=== PATIENT | female | born 1950 | race Caucasian/White ===

== ENCOUNTER 2018-02-15 20:23 | Inpatient (IN) | payer MEDICARE ==
[2018-02-15] MEDS ORDERED: Propofol 500 MG/50 ML VIAL ONE (21:11)
--- NOTE | 2018-02-15 21:13 | RAD ---
LEFT FOREARM TWO VIEWS 02/15/18 HISTORY: Injury, left wrist pain. FINDINGS/IMPRESSION: There is an angulated fracture involving the left distal radial metaphysis. There is also an age inde terminate fracture of the ulnar styloid. POS: [facility]
--- NOTE | 2018-02-15 21:15 | RAD ---
RIGHT FOREARM TWO VIEWS: 02/15/18 HISTORY: Trauma, right wrist pain. FINDINGS/IMPRESSION: There is an angulated fracture involving the distal radial metaphysis. There is also an avulsion frac ture of the ulnar styloid. Postop changes and metallic hardware is seen in the fourth metacarpal. POS: [facility]
--- NOTE | 2018-02-15 22:44 | RAD ---
AP PELVIS: 02/15/18 HISTORY: Trauma, hip pain. FINDINGS/IMPRESSION: There are degenerative changes in the lower lumbar spine. No acute fracture or dislocation is identif ied. POS: [facility]
--- NOTE | 2018-02-15 22:53 | RAD ---
LEFT WRIST TWO VIEWS: 02/15/18 HISTORY: Left radius and ulnar fracture reduction. FINDINGS/IMPRESSION: There is incomplete reduction of the distal radial fracture noted on the earlier exam of 8:43 p.m. to day with mild residual angulation. A cast has been placed. Fracture of the ulnar styloid is again see n. POS: [facility]
--- NOTE | 2018-02-15 22:54 | RAD ---
RIGHT WRIST TWO VIEWS: 02/15/18 HISTORY: Distal radial fracture reduction. FINDINGS/IMPRESSION: There has been interval reduction of the distal radial fracture since earlier exam of 8:21 p.m. with mild residual angulation. Cast has been placed in the interim. POS: [facility]
--- NOTE | 2018-02-15 23:13 | CT ---
CT OF THE BRAIN WITHOUT CONTRAST: 02/15/18 HISTORY: Trauma to the head. Blurred vision. FINDINGS: No evidence of acute infarct, hemorrhage, midline shift or abnormal extra-axial fluid collections are seen. The ventricular size is normal and the basilar cisterns patent. The bony calvarium is intact. The visualized paranasal sinuses and mastoid air cells are well aerated. IMPRESSION: No CT evidence of acute intracranial process. POS: [facility]
--- NOTE | 2018-02-15 23:16 | CT ---
CT CERVICAL SPINE WITH CORONAL AND SAGITTAL REFORMATIONS: 02/15/18 HISTORY: Trauma, neck pain. FINDINGS/IMPRESSION: There is loss of cervical lordosis with mild reversal. There are degenerative changes present, most p rominent at C5-6 level. No acute fracture or subluxation is identified. No facet malalignment is seen . POS: [facility]
[2018-02-15] MEDS ORDERED: HYDROcodone/Acetaminophen 5/325 mg Tablet ONE (23:45)
[2018-02-15 23:48] LABS: #Lymphocytes 1.5 thou/uL (1.20-3.40); #Monocytes 1.1 thou/uL (0.11-0.59); #Neutrophils 14.6 thou/uL (1.40-6.50); %Basophils 0.3 % (0.0-1.0); %Eosinophils 0.3 % (0.0-10.0); %Lymphocytes 8.5 % (21.0-51.0); %Monocytes 6.3 % (0.0-10.0); %Neutrophils 84.7 % (42.0-75.0); Hemoglobin 13.3 g/dL (12.0-16.0); Mean Corpuscular HGB CONC 33.5 g/dL (32.0-36.0); Mean Corpuscular Hemoglobin 33.9 pg (27.0-31.0); Mean Platelet Volume 8.7 fL (7.4-10.4); Platelet Count 168 thou/uL (130-400); RBC Distribution Width 10.7 % (11.5-14.5); Red Blood Cell (RBC) Count 3.93 mill/uL (4.20-5.40); White Blood Cell (WBC) Count 17.3 thou/uL (4.8-10.8)
[2018-02-15 23:56] LABS: PTT 25.7 SEC (22.9-36.1); Prothrombin Time 13.3 SEC (12.0-14.7)
[2018-02-16 00:11] LABS: ALT (SGPT) 29 U/L (8-55); AST (SGOT) 43 U/L (5-34); Albumin 4.1 g/dL (3.4-4.8); Alkaline Phosphatase 51 U/L (40-150); Anion Gap 18 mmol/L (10-20); BUN (Urea Nitrogen) 15 mg/dL (9.8-20.1); Bilirubin, Total 0.3 mg/dL (0.2-1.2); CK (CPK) 240 U/L (29-168); Calc. Creatinine Clearance 0 mL/min (70-130); Calcium 9.3 mg/dL (7.8-10.44); Carbon Dioxide 20 mmol/L (23-31); Chloride 105 mmol/L (98-107); Estimated GFR-MDRD 77; Globulin 2.4 g/dL (2.4-3.5); Glucose 84 mg/dL (80-115); Protein, Total 6.5 g/dL (6.0-8.3); Sodium 139 mmol/L (136-145)
--- NOTE | 2018-02-16 00:23 | HP ---
DATE OF ADMISSION: 02/15/2018 REQUESTING PHYSICIAN: Dr. Jerez. ATTENDING PHYSICIAN: Dr. Martinez. CONSULTATIONS: Orthopedics, Dr. German. 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 The patie nt is unsure if she had a loss of consciousness. She remembers landing on her buttocks and both of h er outstretched upper extremities. The patient's chief complaint was severe wrist pain bilaterally w ith deformities. She was brought to the emergency department by ground EMS and underwent evaluation and examination and was noted to have displaced distal radius fractures bilaterally at which time we were asked to evaluate the patient for admission and obtain orthopedic consultation. ALLERGIES: None. CURRENT MEDICATIONS: None. PAST MEDICAL HISTORY: Breast cancer. PAST SURGICAL HISTORY: Tubal ligation and left breast lumpectomy. SOCIAL HISTORY: Patient's primary residence is in [place]. She denies drinking alcohol daily. She has occasional alcohol. Denies drug or tobacco use. REVIEW OF SYSTEMS: A 10-point review of systems is negative otherwise stated. PHYSICAL EXAMINATION: VITAL SIGNS: Blood pressure 112/72, heart rate 79, respirations 18, oxygen saturation 96% on room ai r, temperature is 98.1. GENERAL: Patient is resting comfortably in the ER bed. She is awake, alert, and oriented x3. Glasg ow coma scale is 15. HEENT: Head is normocephalic, atraumatic. Eyes: Extraocular motions intact. PERRLA bilaterally. Ears are atraumatic without discharge. Nose is atraumatic without discharge. Oropharynx is clear. NECK: Nontender. Trachea is midline. No JVD. CHEST: Clear to auscultation with good inspiratory and expiratory effort. HEART: Regular rate and rhythm. ABDOMEN: Soft, flat, nontender with active bowel sounds. Pelvis is stable. EXTREMITIES: Bilateral lower extremities are neurovascularly intact. Capillary refill is less than 3 seconds. Upper extremities are immobilized in Sugar tong splints bilaterally. Cap refill is less than 3 seconds and gross sensory is intact. BACK: Atraumatic and nontender. LABORATORY DATA: White blood cell count 17.3, hemoglobin 13.3, hematocrit 39.7, platelets 168. PT 1 3, INR 1.0, PTT 26. Chemistries are pending. RADIOGRAPHIC REPORTS: CT of the brain without contrast shows no CT evidence of acute intracranial pr ocess. CT of the cervical spine without contrast shows no acute fracture or subluxation. Radiograph of the right forearm shows an angulated fracture involving the distal radius and an avulsion fractur e of the ulnar styloid. Radiographs of the left forearm show an angulated fracture of the left dista l radius and an age indeterminate fracture of the ulnar styloid. AP pelvis radiograph shows no acute fracture or dislocation. Two views of the right and left wrist show post-reduction changes with imp rovement of angulation. ASSESSMENT AND PLAN: 1. Status post injury due to livestock. 2. Bilateral distal radius and ulnar fractures, status post closed reduction in the emergency depart ment. 3. Acute pain secondary to trauma. PLAN: Plan will be to admit the patient to the surgical floor. We will make her n.p.o. We will do IV pain medication, pulmonary toilet, gastritis, mechanical VTE prophylaxis. The patient would like to discuss surgical options with Dr. German in the morning, but states that she has an orthopedic h and surgeon in [place] near where she lives and is likely going to want to have her surgery done ther e, but this will be discussed in the morning with Dr. German. The evaluation, examination, laborat ory and radiographic findings will be discussed with Dr. Martinez after this dictation.
[2018-02-16] MEDS ORDERED: Morphine 4 MG/ML VIAL IV PRN (00:37)
[2018-02-16] MEDS ORDERED: hydrALAZINE 20 MG/ML VIAL SLOW IVP PRN (00:37)
[2018-02-16] MEDS ORDERED: Dextrose 50% Abboject 50 ML SYRINGE SLOW IVP PRN (00:37)
[2018-02-16] MEDS ORDERED: Ondansetron ODT 4 MG TAB PO PRN (00:37)
[2018-02-16] MEDS ORDERED: Dextrose 5% in Water 1,000 ML IV PRN (00:37)
[2018-02-16] MEDS ORDERED: Ondansetron HCl/PF 4 MG/2 ML Vial IVP PRN (00:37)
[2018-02-16] MEDS ORDERED: Ketorolac Tromethamine 30 MG/ML VIAL IVP SCH ×2 (01:00→06:00)
[2018-02-16] MEDS ORDERED: Acetaminophen 1,000 MG in Premix Bag 1 BAG IVPB SCH ×2 (01:00→06:00)
[2018-02-16] MEDS: Sodium Chloride 0.9% 1,000 ML IV SCH ×2 (01:16→09:30)
[2018-02-16 06:02] LABS: #Lymphocytes 2.3 thou/uL (1.20-3.40); #Monocytes 0.9 thou/uL (0.11-0.59); #Neutrophils 7.1 thou/uL (1.40-6.50); %Basophils 0.5 % (0.0-1.0); %Eosinophils 0.3 % (0.0-10.0); %Lymphocytes 21.9 % (21.0-51.0); %Monocytes 8.4 % (0.0-10.0); Hemoglobin 11.8 g/dL (12.0-16.0); Mean Corpuscular HGB CONC 32.6 g/dL (32.0-36.0); Mean Corpuscular Hemoglobin 33.4 pg (27.0-31.0); Mean Platelet Volume 8.9 fL (7.4-10.4); Platelet Count 170 thou/uL (130-400); RBC Distribution Width 10.6 % (11.5-14.5); Red Blood Cell (RBC) Count 3.54 mill/uL (4.20-5.40); White Blood Cell (WBC) Count 10.3 thou/uL (4.8-10.8)
[2018-02-16 06:14] LABS: Anion Gap 15 mmol/L (10-20); BUN (Urea Nitrogen) 13 mg/dL (9.8-20.1); Calc. Creatinine Clearance 0 mL/min (70-130); Calcium 8.3 mg/dL (7.8-10.44); Carbon Dioxide 19 mmol/L (23-31); Chloride 105 mmol/L (98-107); Estimated GFR-MDRD 82; Glucose 77 mg/dL (80-115); Potassium 4.3 mmol/L (3.5-5.1); Sodium 135 mmol/L (136-145)
[2018-02-16 07:53] VITALS: BP 108/55; TEMP 97.9
--- NOTE | 2018-02-16 08:54 | CON ---
DATE OF CONSULTATION: 02/16/2018 REQUESTING PHYSICIAN: Dr. Orestes Martinez. 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 She landed on her buttocks as well as outstretched bilateral hands. She reports immediate severe bilater al wrist pain with deformity. Upon arrival at [facility], x-rays were obtained that d emonstrated bilateral distal radius fractures. The ER physician proceeded with a closed reduction of both wrists, getting partial reduction, but still with some slight radial offset and residual dorsal angulation; however, the distal radial fragment has been restored on top of the shaft, taking pressu re off of the median nerve. She was placed in splints and then admitted to the Trauma service for pa in management. PAST MEDICAL HISTORY: Remarkable for breast cancer. PAST SURGICAL HISTORY: Lumpectomy as well as tubal ligation. MEDICATIONS: None. ALLERGIES: None. SOCIAL HISTORY: Primary residence is in [place]. She informs me that she does have a good friend, w caryn is a hand surgeon at the [facility]. She drinks alcohol on occasion. Denies tobac co or drug use. REVIEW OF SYSTEMS: No fevers, chills, or sweats. No chest pain or shortness of breath. No numbness or tingling in the hands. PHYSICAL EXAMINATION: VITAL SIGNS: On exam, found to have a temperature of 97.9, heart rate of 77, respiratory rate of 18, and blood pressure 108/55. GENERAL: She is resting in her hospital bed, awake, alert, and oriented, in no apparent distress. HEENT: Atraumatic, normocephalic. CHEST: Nontender. EXTREMITIES: Remarkable for bilateral upper extremities in sugar-tong splints. She is able to wiggl e her fingers; however, this does produce some bilateral wrist pain. Bilaterally, she has intact sen sation in the radial, median, and ulnar distributions. She has excellent capillary refill. LABORATORY DATA: She has a white count of 10.3, hematocrit of 36.2, and 170,000 platelets. X-RAYS: Pre- and post-reduction x-rays of both wrists were obtained in the emergency room with the p ost-reduction films demonstrating a left wrist with a partially-reduced fracture. There is still jackie roximately 15 degrees of residual dorsal angulation and slight radial translation. The right distal radius post-reduction film is remarkable for intra-articular split of the articular segment. There i s some radial translation and residual dorsal angulation of approximately 35 degrees. ASSESSMENT: This is a 67-year-old right-hand dominant lady, status post fall on the bilateral outstr etched wrist, sustaining distal radius fractures with partial reduction in the emergency room. PLAN: Today, I had a long discussion with patient regarding treatment options. Given the bilaterali ty as well as the intra-articular extension of one of the distal radiuses, I believe that operative i ntervention with some plate stabilization would be a very reasonable choice to allow for some return of function while she is awaiting for fracture healing. I also do not believe that this is an emerge nt procedure at this time, since patient has an established relationship with the hand physician in [facility] and she lives in [place]. I think it is reasonable for her to be discharged from the hospital with followup for anticipated outpatient surgical stabilization of these fractures. Patient appears comfortable with our discussion and plan today. At this time, I will sign off the case for patient to follow up with her primary orthopedic surgeon.
[2018-02-16] MEDS ORDERED: Famotidine 20 MG TAB PO SCH (09:00)
== END 2018-02-16 10:51 | disposition home or self-care (01) | DRG 563 ==
LOC: ERS 20:23 → SURG A 02-16 00:30
PROVIDERS: ADMIT Surgery; ATTEND Surgery
PROC: 0PSJXZZ Reposition Left Radius, External Approach (ICD-10-PCS; principal; 2018-02-16)
PROC: 0PSHXZZ Reposition Right Radius, External Approach (ICD-10-PCS; 2018-02-16)
DX: S52.502A Unspecified fracture of the lower end of left radius, initial encounter for closed fracture (principal); S52.501A Unspecified fracture of the lower end of right radius, initial encounter for closed fracture; X50.9XXA Other and unspecified overexertion or strenuous movements or postures, initial encounter
CPT/HCPCS: 36415; 70450; 72125; 72170; 80048; 80053; 82550; 85025; 85610; 85730; 86850; 86900; 86901; 93005; G0390; J0131; J1885; J2704